=== PATIENT | female | born 1980 | race Two or more races ===

== ENCOUNTER 2016-07-30 00:04 | Emergency (ER) | payer OTHER ==
[~2016-07-30] VITALS: Ht 157.5 cm; Wt 63.5 kg
[2016-07-30 00:07] VITALS: BP 122/78
[2016-07-30] MEDS ORDERED: LORAZEPAM 1 MG TABLET ONE (00:42)
[2016-07-30] MEDS ORDERED: LORAZEPAM 0.5 MG TABLET PO ONE (01:00)
== END 2016-07-30 00:49 ==
LOC: ER 00:05
DX: F41.9 Anxiety disorder, unspecified (principal); I10 Essential (primary) hypertension
CPT/HCPCS: 99284; A4606; Z7610